=== PATIENT | male | born 1965 | race American Indian/Alaskan Native ===

== ENCOUNTER 2019-03-23 06:43 | Day surgery (SDC) | payer OTHER ==
[2019-03-23 07:41] LABS: INR 0.94 (0.87-1.13)
[2019-03-23 07:42] LABS: Partial Thromboplastin Time 29.7 Sec. (24.2-36.6)
[2019-03-23 07:46] LABS: Hematocrit 35.6 % (35.5-45.6); Hemoglobin 11.4 gm/dl (11.8-15.2); Mean Corpuscular HGB Conc 32 % (32-34); Mean Corpuscular Volume 84 fl (84-94); Platelet Count 215 K/mm3 (140-440); Red Blood Count 4.26 M/mm3 (3.65-5.03); Red Cell Distribution Width 13.3 % (13.2-15.2)
[2019-03-23 07:48] LABS: BUN/Creatinine Ratio 23; Blood Urea Nitrogen 21 mg/dL (9-20); Calcium 9.2 mg/dL (8.4-10.2); Hemolysis Index 49
[2019-03-23] MEDS ORDERED: SODIUM CHLORIDE 0.9% 500 ML 500 ML ONE (08:14)
[2019-03-23] MEDS ORDERED: SODIUM CHLORIDE 0.9% 500 ML 500 ML IV SCH (09:00)
[2019-03-23] MEDS ORDERED: HEPARIN/NS 5000 UNIT/500ML 0 ML IR ONE (09:38)
[2019-03-23] MEDS ORDERED: HEPARIN/NS 5000 UNIT/500ML 1,000 ML IR ONE (09:39)
[2019-03-23] MEDS ORDERED: NITROGLYCERIN SYRINGE 3 ML ONE (09:39)
[2019-03-23] MEDS ORDERED: VERAPAMIL 5 MG/2 ML INJ ONE (09:39)
[2019-03-23] MEDS ORDERED: fentaNYL 100 MCG/2 ML INJ ONE (09:40)
[2019-03-23] MEDS ORDERED: MIDAZOLAM 2 MG/2 ML INJ ONE (09:40)
[2019-03-23] MEDS ORDERED: LIDOCAINE 1%/EPINEPHRINE 1:100,000 VIAL (20 ML) INFILTRATI ONE (10:10)
[2019-03-23] MEDS: HEPARIN 10,000 UNITS/10 ML VIAL ONE ×2 (10:30→10:32)
--- NOTE | 2019-03-23 11:58 | Short Stay Summary ---
Short Stay Documentation Date of service: 03/23/19 Narrative H&P: 53-year-old male with severe peripheral vascular disease with nonhealing ulcer of the right first digit with underlying osteomyelitis and diabetes with neuropathy. - History Principal diagnosis: PVD with ulceration H&P: obtained from office - Allergies and Medications Current Medications: Allergies No Known Allergies Allergy (Unverified 03/23/19 06:43) Home Medications Medication Instructions Recorded Confirmed Last Taken Type Aspirin [Aspirin BABY CHEW TAB] 81 mg PO QDAY 03/23/19 03/23/19 03/23/19 History 0600 AtorvaSTATin [Lipitor] 10 mg PO DAILY 03/23/19 03/23/19 03/23/19 06:00 History 1 tab Furosemide [Lasix] 20 mg PO QDAY 03/23/19 03/23/19 03/20/19 History 1 tab Gabapentin 300 mg PO TID 03/23/19 03/23/19 03/22/19 History 1 tab Insulin Aspart (Nf) [NovoLOG 3 ml SUB-Q ACHS 03/23/19 03/23/19 03/22/19 History Flexpen] Insulin Degludec (Nf) [Tresiba 3 ml SUB-Q QHS 03/23/19 03/23/19 03/22/19 History Flextouch U-100 (Nf)] 35 units Losartan [Cozaar] 50 mg PO DAILY 03/23/19 03/23/19 03/23/19 06:00 History 1 tab Nitroglycerin [Nitrostat] 0.4 mg PO PRN PRN 03/23/19 03/23/19 Unknown History Potassium Chloride [K-Dur] 20 meq PO QDAY 03/23/19 03/23/19 03/20/19 History 1 tab Tamsulosin [Flomax] 0.4 mg PO DAILY 03/23/19 03/23/19 03/22/19 History 1 tab carvediloL [Coreg] 6.25 mg PO DAILY 03/23/19 03/23/19 03/23/19 06:00 History 1 tab Active Medications Sodium Chloride (Nacl 0.9% 500 Ml) 500 mls @ 50 mls/hr IV DIRECT DYLAN Last Admin: 03/23/19 10:15 Dose: 100 mls Documented by: - Physical exam General appearance: no acute distress Lungs: Normal air movement Gastrointestinal: normal, normoactive bowel sounds Extremities: abnormal (Right first digit ulceration) - Brief post op/procedure progress note Date of procedure: 03/23/19 Pre-op diagnosis: PVD with ulceration Post-op diagnosis: same Procedure: Third order selection of the right superficial femoral artery Third order selection of the left superficial femoral artery Bilateral lower extremity angiogram Angiography of the abdominal aorta Anesthesia: local (With conscious sedation) Findings: Severe bilateral peripheral vascular disease of the below the knee vessels Surgeon: SONDRA PACK Estimated blood loss: minimal Condition: stable - Hospital course Hospital course: Patient tolerated the procedure well. No immediate postprocedural complication. Patient is recovering well and was discharged without issue. - Disposition Condition at discharge: Stable Disposition: [id number] TO HOME OR SELFCARE - Discharge Diagnoses (1) Critical lower limb ischemia Status: Acute (2) Atherosclerotic PVD with ulceration Status: Acute (3) Neuropathic diabetic ulcer of foot Status: Acute (4) Osteomyelitis Status: Acute Short Stay Discharge Plan Activity: advance as tolerated Weight Bearing Status: Weight Bear as Tolerated (Do not lift more than 10 pounds with left upper extremity for 1 week) Diet: diabetic Wound: keep clean and dry Follow up with: ELIAZAR YIP MD [Primary Care Provider] - 7 Days Forms: CardCath PCI D/C Instructions
--- NOTE | 2019-03-23 12:12 | Operative Report ---
Operative Report Operative Report: EXAM: 1. Selection of the abdominal aorta with angiography 2. Third order selection of the right lower extremity superficial femoral artery with angiography 3. Third order selection of the left lower extremity superficial femoral artery with angiography DATE: 03/23/2019 DATA ENTRY PROCESSOR: SONDRA PACK MD INDICATION: Critical limb ischemia of the right lower extremity with bilateral lower extremity peripheral vascular disease and diabetic neuropathy MEDICATIONS: Please see nursing report for full details. DEVICES: None CONTRAST: Please see catheter report for full details PROCEDURE: The risks, benefits, and alternatives were discussed with the patient; written informed consent was obtained. The patient was prepped and draped in a sterile fashion and the left wrist was prepped and draped in a sterile fashion. The left radial artery was assessed by ultrasound and determined to be patent. The area was anesthetized. A 21-gauge micropuncture needle was used to access the left radial artery under direct ultrasound guidance. 0.018 inch wire was passed into the artery. The needle was exchanged for a 5 [place] glidesheath. Radial cocktail was administered. The thoracic aorta was selected, the descending thoracic aorta was selected, the abdominal aorta was selected. Digital subtraction angiography was performed with a pigtail catheter. The catheter was exchanged for a glide angled catheter which was used to select the right superficial femoral artery. Digital subtraction angiography was performed. Catheter was retracted to the right common femoral artery and iliac arteries and digital subtraction angiography was performed. The angled catheter was used to select the left superficial femoral artery. Digital subtraction angiography was performed. Catheter was retracted to the left common femoral artery and iliac arteries and digital subtraction angiography was performed. After reviewing the images, all wires, catheters, and sheaths were removed and the site was compressed with a TR band. Patient tolerated the procedure well. No immediate postprocedural complication FINDINGS: Aorta: The infrarenal abdominal aorta is patent. Right lower extremity: The right common iliac artery, external iliac artery, internal iliac artery, common femoral artery, profunda femoral artery, superficial femoral artery and popliteal artery are patent. The tibioperoneal trunk is short and patent. The peroneal artery has a proximal 80% 5 cm lesion and is the dominant flow to the foot through the posterior and anterior communicating arteries. The anterior tibial artery is patent for 3 cm, and subsequently becomes occluded with reconstitution at the level of the ankle from the anterior communicating arteries from the peroneal artery. The posterior tibial artery has a long segment subcritical narrowing of the proximal and mid calf with 50% narrowing of the distal right posterior tibial artery with reconstitution of the pedal circulation through the posterior communicating arteries from the peroneal artery. Overall, there is severe infrapopliteal disease. Left lower extremity: The left common iliac artery, external iliac artery, internal iliac artery, common femoral artery, profunda femoral artery, superficial femoral artery and popliteal artery are patent. The infrapopliteal vessels, for nearly a trifurcation making the tibioperoneal trunk extremely short but patent. The peroneal artery has a proximal 90% 5 cm lesion and is the dominant flow to the foot through the posterior and anterior communicating arteries. The anterior tibial artery is patent for 5 cm, and subsequently becomes occluded with reconstitution at the level of the ankle from the anterior communicating arteries from the peroneal artery. The posterior tibial artery has a long segment subcritical narrowing of the proximal and mid calf with 50% narrowing of the distal right posterior tibial artery with reconstitution of the pedal circulation through the posterior communicating arteries from the peroneal artery. Overall, there is severe infrapopliteal disease. IMPRESSION: Severe bilateral lower extremity infrapopliteal peripheral vascular disease. Patient will be scheduled for right lower extremity endovascular intervention.
[2019-03-23 15:41] VITALS: BP 142/75
== END 2019-03-23 15:54 | disposition home or self-care (01) ==
LOC: CATHLABREC 06:43
PROVIDERS: ATTEND Radiology Diagnostic Radiology
DX: I70.235 Atherosclerosis of native arteries of right leg with ulceration of other part of foot (principal); E11.621 Type 2 diabetes mellitus with foot ulcer; M86.9 Osteomyelitis, unspecified; E11.42 Type 2 diabetes mellitus with diabetic polyneuropathy; I20.8 Other forms of angina pectoris; E78.00 Pure hypercholesterolemia, unspecified; I11.0 Hypertensive heart disease with heart failure; I50.9 Heart failure, unspecified; Z98.890 Other specified postprocedural states; Z79.899 Other long term (current) drug therapy; Z79.82 Long term (current) use of aspirin; Z79.4 Long term (current) use of insulin; Z83.3 Family history of diabetes mellitus; Z82.49 Family history of ischemic heart disease and other diseases of the circulatory system
CPT/HCPCS: 36247; 36415; 75625; 75716; 76937; 80048; 85027; 85610; 85730; 99156; 99157; C1769; C1887; C1894; J1644; J2250; J3010; J7040; Q9967

== ENCOUNTER 2019-04-06 08:26 | Day surgery (SDC) | payer OTHER ==
[2019-04-06 09:32] LABS: Basophils # (Auto) 0.1 K/mm3 (0.0-0.1); Basophils % (Auto) 0.8 % (0.0-1.8); Eosinophils # (Auto) 0.2 K/mm3 (0.0-0.4); Eosinophils % (Auto) 3.1 % (0.0-4.3); Hematocrit 35.1 % (35.5-45.6); Hemoglobin 11.1 gm/dl (11.8-15.2); Lymphocytes # (Auto) 2.8 K/mm3 (1.2-5.4); Mean Corpuscular HGB Conc 32 % (32-34); Mean Corpuscular Volume 84 fl (84-94); Monocytes # (Auto) 0.6 K/mm3 (0.0-0.8); Monocytes % (Auto) 7.1 % (0.0-7.3); Platelet Count 198 K/mm3 (140-440); Red Blood Count 4.18 M/mm3 (3.65-5.03); Red Cell Distribution Width 13.4 % (13.2-15.2)
[2019-04-06] MEDS ORDERED: SODIUM CHLORIDE 0.9% 500 ML 500 ML ONE (09:37)
[2019-04-06 09:44] LABS: BUN/Creatinine Ratio 18; Blood Urea Nitrogen 18 mg/dL (9-20); Hemolysis Index 0
[2019-04-06] MEDS ORDERED: SODIUM CHLORIDE 0.9% 500 ML 500 ML IV SCH (10:00)
[2019-04-06] MEDS ORDERED: ceFAZolin/STERILE WATER 2 GM/20 ML SYRINGE IV NR (10:00)
[2019-04-06 10:21] LABS: INR 0.99 (0.87-1.13)
[2019-04-06 10:26] LABS: Partial Thromboplastin Time 31.2 Sec. (24.2-36.6)
[2019-04-06] MEDS ORDERED: HEPARIN/NS 5000 UNIT/500ML 1,000 ML IR ONE (12:07)
[2019-04-06] MEDS ORDERED: ceFAZolin/Water 2 GM/20 ML 2 GM/20 ML SYRINGE IV ONE (12:08)
[2019-04-06] MEDS ORDERED: LIDOCAINE 1%/EPINEPHRINE 1:100,000 VIAL (20 ML) INFILTRATI ONE (12:08)
[2019-04-06] MEDS: fentaNYL 100 MCG/2 ML INJ ONE ×2 (12:18→12:21)
[2019-04-06] MEDS: MIDAZOLAM 2 MG/2 ML INJ ONE ×2 (12:19→12:21)
[2019-04-06] MEDS: HEPARIN 10,000 UNITS/10 ML VIAL ONE ×3 (12:34→13:52)
[2019-04-06] MEDS ORDERED: fentaNYL 100 MCG/2 ML INJ ONE (12:36)
[2019-04-06] MEDS ORDERED: MIDAZOLAM 2 MG/2 ML INJ ONE (12:36)
[2019-04-06] MEDS: NITROGLYCERIN SYRINGE 6 ML ONE ×2 (12:58→13:02)
[2019-04-06] MEDS ORDERED: SODIUM CHLORIDE 0.9% 1000 ML 1,000 ML ONE (13:17)
[2019-04-06] MEDS ORDERED: NITROGLYCERIN DRIP 50 MG/250 ML BOTTLE ONE (13:18)
[2019-04-06] MEDS ORDERED: VERAPAMIL 5 MG/2 ML INJ ONE (13:18)
[2019-04-06] MEDS ORDERED: NITROGLYCERIN SYRINGE 3 ML ONE (13:55)
[2019-04-06] MEDS ORDERED: SODIUM CHLORIDE 0.9% 250ML 250 ML ONE (14:09)
[2019-04-06] MEDS ORDERED: ASPIRIN 81 MG TAB CHEW ONE (14:29)
[2019-04-06] MEDS ORDERED: CLOPIDOGREL 300 MG TAB ONE (14:30)
[2019-04-06] MEDS ORDERED: ALUM-MAG HYDROXIDE-SIMETHICONE 200-200-20MG/5ML ORAL LIQD 30 ML ONE (14:34)
[2019-04-06] MEDS ORDERED: hydrALAZINE 20 MG/1 ML INJ IV ONE (16:00)
--- NOTE | 2019-04-06 16:17 | Short Stay Summary ---
Short Stay Documentation Date of service: 04/06/19 Narrative H&P: Right first digit osteomyelitis with critical limb ischemia - History Principal diagnosis: Peripheral vascular disease with ulceration H&P: obtained from office - Allergies and Medications Current Medications: Allergies No Known Allergies Allergy (Verified 04/06/19 08:55) Home Medications Medication Instructions Recorded Confirmed Last Taken Type Aspirin [Aspirin BABY CHEW TAB] 81 mg PO QDAY 03/23/19 04/06/19 04/06/19 History 81 mg AtorvaSTATin [Lipitor] 10 mg PO DAILY 03/23/19 04/06/19 04/06/19 History 10 mg Furosemide [Lasix] 20 mg PO QDAY 03/23/19 04/06/19 04/05/19 History 20 mg Gabapentin 300 mg PO TID 03/23/19 04/06/19 04/06/19 History 300 mg Insulin Aspart (Nf) [NovoLOG 3 ml SUB-Q ACHS 03/23/19 04/06/19 04/05/19 19:00 History Flexpen] 4 units Insulin Degludec (Nf) [Tresiba 3 ml SUB-Q QHS 03/23/19 04/06/19 04/05/19 History Flextouch U-100 (Nf)] 35 units Losartan [Cozaar] 50 mg PO DAILY 03/23/19 04/06/19 04/06/19 History 50 mg Nitroglycerin [Nitrostat] 0.4 mg PO PRN PRN 03/23/19 04/06/19 Unknown History Potassium Chloride [K-Dur] 20 meq PO QDAY 03/23/19 04/06/19 04/05/19 History 20 meq Tamsulosin [Flomax] 0.4 mg PO DAILY 03/23/19 04/06/19 04/06/19 History 0.4mg carvediloL [Coreg] 6.25 mg PO DAILY 03/23/19 04/06/19 04/06/19 History 6.25mg Aspirin EC [Halfprin EC] 81 mg PO QDAY #30 tablet. 04/06/19 Unknown Rx Clopidogrel [Plavix] 75 mg PO QDAY #30 tablet 04/06/19 Unknown Rx Pantoprazole [Protonix TAB] 20 mg PO QDAY #30 tablet. 04/06/19 Unknown Rx Active Medications Sodium Chloride (Nacl 0.9% 500 Ml) 500 mls @ 50 mls/hr IV DIRECT DYLAN Last Admin: 04/06/19 09:09 Dose: 50 mls/hr Documented by: - Physical exam General appearance: no acute distress Lungs: Normal air movement Gastrointestinal: normal Extremities: normal temperature, normal color - Brief post op/procedure progress note Date of procedure: 04/06/19 Pre-op diagnosis: Peripheral vascular disease with ulceration Post-op diagnosis: same Procedure: 1. Ultrasound-guided access of the left common femoral artery. 2. Angiography of the left lower extremity. 3. Selection of the abdominal aorta with angiography. 4. Selection of the superficial femoral artery, popliteal artery, and peroneal artery with angiography. 5. Fluoroscopic guided placement of a 5 mm spider embolic protection device in the right peroneal artery 6. Atherectomy of the right proximal peroneal artery with a Hawkone S device, with angioplasty with a 3.5 mm x 100 mm Angiosculpt and 4 mm x 80 mm iNPACT DCB 7. Atherectomy of the right anterior tibial artery with a CSI 1.5 mm solid ath erectomy device with angioplasty with a 2.5 mm x 100 mm angioscope and 2.5 mm x 220 mm angioplasty balloon 8. Fluoroscopic guided placement of a 4 mm spider embolic protection in the right peroneal artery 9. Stenting of the right proximal peroneal artery with a 4 mm x 38 mm drug- eluting RESOLUTE stent 10. Closure of the left common femoral artery with a 6 [place]ish pro glide Anesthesia: local (With conscious sedation) Surgeon: SONDRA PACK Estimated blood loss: minimal Condition: stable - Hospital course Hospital course: Tolerated procedure well. Will be temporarily started on triple therapy due to the unforeseen stenting of his proximal peroneal artery with Protonix. After 1 month, Eliquis will be discontinued. Triple therapy will consist of low-dose aspirin, Plavix, and 2.5 mg of Eliquis twice a day - Disposition Condition at discharge: Stable Disposition: TO HOME OR SELFCARE - Discharge Diagnoses (1) Atherosclerotic PVD with ulceration Status: Acute (2) Critical lower limb ischemia Status: Acute (3) Neuropathic diabetic ulcer of foot Status: Acute (4) Osteomyelitis Status: Acute Short Stay Discharge Plan Activity: advance as tolerated Weight Bearing Status: Weight Bear as Tolerated (Do not lift more than 10 pounds for 1 week) Diet: regular Wound: keep clean and dry Follow up with: ELIAZAR YIP MD [Primary Care Provider] - 7 Days Forms: Post Arteriogram Instruct Prescriptions: Aspirin EC [Halfprin EC] 81 mg PO QDAY #30 tablet. Clopidogrel [Plavix] 75 mg PO QDAY #30 tablet Pantoprazole [Protonix TAB] 20 mg PO QDAY #30 tablet.
--- NOTE | 2019-04-06 16:18 | Operative Report ---
Operative Report Operative Report: EXAM: 1. Ultrasound-guided access of the left common femoral artery. 2. Angiography of the left lower extremity. 3. Selection of the abdominal aorta with angiography. 4. Selection of the superficial femoral artery, popliteal artery, and peroneal artery with angiography. 5. Fluoroscopic guided placement of a 5 mm spider embolic protection device in the right peroneal artery 6. Atherectomy of the right proximal peroneal artery with a Hawkone S device, with angioplasty with a 3.5 mm x 100 mm Angiosculpt and 4 mm x 80 mm iNPACT DCB 7. Atherectomy of the right anterior tibial artery with a CSI 1.5 mm solid atherectomy device with angioplasty with a 2.5 mm x 100 mm angiosculpt and 2.5 mm x 220 mm angioplasty balloon 8. Fluoroscopic guided placement of a 4 mm spider embolic protection in the right peroneal artery 9. Stenting of the right proximal peroneal artery with a 4 mm x 38 mm drug-eluting RESOLUTE stent 10. Closure of the left common femoral artery with a 6 [place]an pro glide DATE: 04/06/2019 MANAGEMENT TRAINEE MARKETING: SONDRA PACK MD INDICATION: PVD of the right lower extremity with nonhealing ulceration of the right first digit MEDICATIONS: Please see nursing report for full details. DEVICES: Hawkone S device CSI 1.5 mm solid atherectomy device 2.5 mm x 100 mm angiosculpt 3.5 mm x 100 mm angiosculpt 2.5 mm x 220 mm angioplasty balloon 4 mm x 80 mm iNPACT DCB 4 mm x 38 mm RESOLUTE ROMINA 4 mm spider EPD 5 mm spider EPD CONTRAST: Please see slab depiler operator report for full details PROCEDURE: The risks, benefits, and alternatives were discussed with the patient and his ; written informed consent was obtained. The patient was brought to the angiography suite and prepped and draped in sterile fashion. His left common femoral artery was evaluated with ultrasound was patent. Under direct ultrasound guidance, the left common femoral artery was accessed with a 21-gauge micropuncture needle. 0.018 inch wire was passed into the aorta. Needle was exchanged for transitional dilator. Wire was exchanged for a 0.035 inch wire. Transitional dilator was exchanged for a 5 [place]an sheath. Digital subtraction angiography was performed demonstrating patency of the left common femoral artery, proximal superficial femoral artery, proximal profundofemoral artery, and left external iliac artery. The abdominal aorta was selected and digital subtraction angiography was performed demonstrating patency of the infrarenal abdominal aorta, bilateral common iliac arteries, bilateral internal iliac arteries, and bilateral external iliac arteries. The right external iliac artery was selected, the right superficial femoral artery was selected, the right popliteal artery was selected, and the right peroneal artery was selected. Digital subtraction angiography was performed demonstrating patency of the right common femoral artery, profunda femoral artery, superficial femoral artery and popliteal artery are patent. The tibioperoneal trunk is short and patent. The peroneal artery has a proximal 80% 5 cm lesion and is the dominant flow to the foot through the posterior and anterior communicating arteries. The anterior tibial artery is patent for 3 cm, and subsequently becomes occluded with reconstitution at the level of the ankle from the anterior communicating arteries from the peroneal artery. The posterior tibial artery has a long segment subcritical narrowing of the proximal and mid calf with 50% narrowing of the distal right posterior tibial artery with reconstitution of the pedal circulation through the posterior communicating arteries from the peroneal artery. After reviewing the imaging, I decided the patient required an intervention. Sheath was exchanged for a 6 [place]an 90 cm [place] destination positioned in the right popliteal artery. 5 mm spider embolic device was placed in the mid right peroneal artery. Atherectomy was performed of the right proximal peroneal artery with a Hawkone S device until there was 30% residual narrowing. 3.5 mm angioscope was used to predilate the lesion, and then a 4 mm iNACT DCB was used to treat the lesion. There was less than 20% residual narrowing. The spider bite with protection of ice was retrieved and there was no significant embolization into the spider device. The anterior tibial artery was then selected and wire was passed through the chronic occlusion into the dorsalis pedis. This was exchanged for a [place] wire. Atherectomy was performed of the right anterior tibial artery with a 1.5 mm solid CSI device. After atherectomy, 2.5 mm x 100 mm angioscope balloon was used to predilate the anterior tibial artery and it was subsequently treated with a 2.5 mm x 220 mm [place]es[place] angioplasty balloon. Digital subtraction angiography was performed demonstrating 20% residual narrowing of the right proximal anterior tibial artery with the rest of the anterior tibial artery patent. There is a small amount of irregularity at the tibioperoneal trunk and there was a thrombus in the proximal peroneal artery with worsening irregularity of the proximal peroneal artery. Using a second wire, the peroneal artery was selected and a 4 mm spider embolic protection device was deployed in the distal right peroneal artery. Digital subtraction angiography was repeated demonstrating that the thrombus had fallen into the spider embolic protection device. Due to the development of the thrombus in the proximal peroneal artery with the underlying irregularity, I decided to stent this lesion. 4 mm x 38 mm resolute drug-eluting stent was then deployed in the proximal peroneal artery. Digital subtraction angiography demonstrated no residual narrowing with prompt flow in the proximal peroneal artery. Despite embolic protection device with the debris was then retrieved. Final angiography was performed demonstrating no distal embolization with now two-vessel runoff into the anterior tibial artery and peroneal artery to the foot. All wires, catheters, and sheaths were retracted to the left external iliac artery and the groin was closed with a 6 [place]an pro glide device. Sterile dressing and pressure dressing applied. Patient tolerated the procedure well, no immediate postprocedural complication. The patient was started on dual antiplatelet therapy and low-dose Eliquis with Protonix after the procedure. Eliquis will be continued for 1 month. FINDINGS: Please see procedure note above. IMPRESSION: 1. Successful atherectomy, angioplasty, and drug-eluting stent of the right peroneal artery. 2. Successful atherectomy and angioplasty of the right anterior tibial artery.
[2019-04-06 16:42] VITALS: BP 144/84
== END 2019-04-06 16:59 | disposition home or self-care (01) ==
LOC: CATHLABREC 08:26
PROVIDERS: ATTEND Radiology Diagnostic Radiology
DX: I70.235 Atherosclerosis of native arteries of right leg with ulceration of other part of foot (principal); E11.42 Type 2 diabetes mellitus with diabetic polyneuropathy; I11.0 Hypertensive heart disease with heart failure; I50.9 Heart failure, unspecified; E11.621 Type 2 diabetes mellitus with foot ulcer; M86.9 Osteomyelitis, unspecified; I20.8 Other forms of angina pectoris; E78.00 Pure hypercholesterolemia, unspecified; F32.9 Major depressive disorder, single episode, unspecified; Z90.49 Acquired absence of other specified parts of digestive tract; Z98.890 Other specified postprocedural states; Z79.82 Long term (current) use of aspirin; Z79.4 Long term (current) use of insulin; Z79.899 Other long term (current) drug therapy; Z82.49 Family history of ischemic heart disease and other diseases of the circulatory system
CPT/HCPCS: 36415; 37231; 37233; 75625; 75710; 76937; 80048; 82962; 85025; 85610; 85730; C1714; C1724; C1725; C1760; C1769; C1874; C1884; C1887; C2623; J0360; J0690; J1644; J2250; J3010; J7030; J7040; J7050; 96374; Q9967